=== PATIENT | male | born 1945 | race Caucasian/White ===

== ENCOUNTER → 2024-02-20 10:29 | Outpatient (REF) | payer MEDICARE, SELFPAY | LOC: HWRAD 10:29 | PROVIDERS: ATTENDING PHYSICIAN Family Medicine | DX: M54.50 Low back pain, unspecified (principal) | CPT/HCPCS: 72110 ==

== ENCOUNTER → 2024-08-13 14:51 | Outpatient (REF) | payer MEDICARE, SELFPAY | LOC: HWRAD 14:51 | PROVIDERS: ATTENDING PHYSICIAN Family Medicine | DX: M79.5 Residual foreign body in soft tissue (principal) | CPT/HCPCS: 70030 ==

== ENCOUNTER → 2024-09-17 12:18 | Outpatient (REF) | payer MEDICARE, SELFPAY | LOC: PAVMRI 12:18 | PROVIDERS: ATTENDING PHYSICIAN Family Medicine | DX: M54.42 Lumbago with sciatica, left side (principal); R41.3 Other amnesia | CPT/HCPCS: 70551; 72148 ==